=== PATIENT | female | born 1990 | race African-American/Black ===

== ENCOUNTER 2016-08-16 14:47 | Emergency (ER) | payer MEDICAID ==
[2016-08-16] MEDS ORDERED: ONDANSETRON 4 MG VIAL ONE (21:29)
[2016-08-16] MEDS ORDERED: SODIUM CHLORIDE 0.9% 1,000 ML ONE (21:29)
[2016-08-16] MEDS ORDERED: DICYCLOMINE 10 MG CAP ONE (21:30)
== END 2016-08-16 23:06 | disposition home or self-care (01) ==
LOC: ER 14:47
DX: K52.9 Noninfective gastroenteritis and colitis, unspecified (principal); F17.210 Nicotine dependence, cigarettes, uncomplicated
CPT/HCPCS: 36415; 80053; 81003; 83690; 84703; 85025; 96361; 96374